=== PATIENT | male | born 1980 | race Hispanic/Latino ===

== ENCOUNTER 2018-01-22 06:20 | Inpatient (IN) | payer SELFPAY ==
[~2018-01-22] VITALS: Ht 180.3 cm; Wt 116.8 kg
[2018-01-22 07:24] LABS: APPEARANCE CLEAR ((CLEAR)); BILIRUBIN SMALL; BLOOD NEGATIVE; COLOR AMBER ((YELLOW)); GLUCOSE (STRIP) NEGATIVE; KETONES NEGATIVE; LEUKOCYTES NEGATIVE; NITRITE NEGATIVE; PROTEIN (STRIP) 30; UCUL ADDED? NO
[2018-01-22 07:25] LABS: BASOPHIL (%) 0.3 % (0-1); EOSINOPHIL (%) 0.4 % (0-5); EOSINOPHIL COUNT 0.1 K/uL (0-0.3); HEMATOCRIT 47.8 % (38.0-50.0); HEMOGLOBIN 16.2 G/DL (12.5-16.6); IMMATURE GRANULOCYTE (%) 0.8 % (0.0-0.7); LYMPHOCYTE (%) 11.5 % (15-42); LYMPHOCYTE COUNT 1.5 K/uL (1.0-2.8); MCH 29.6 PG (29.0-34.0); MCHC 33.9 G/DL (30.0-36.0); MCV 87.4 FL (86-99); MONOCYTE (%) 5.3 % (3-12); MONOCYTE COUNT 0.7 K/uL (0-0.8); NEUTROPHIL (%) 81.7 % (45-76); NEUTROPHIL COUNT 10.8 K/uL (1.8-6.4); PLATELET COUNT 372 K/uL (156-360); RBC DIS.WIDTH-CV 14.2 % (11.8-14.6); RBC DIS.WIDTH-SD 45.2 % (39-53); RED BLOOD COUNT 5.47 M/uL (4.00-5.50); WHITE BLOOD COUNT 13.2 K/uL (4.1-10.2)
[2018-01-22 07:47] LABS: ALBUMIN 4.5 G/DL (3.2-4.8); CHLORIDE 104 MEQ/L (99-109); POTASSIUM 3.9 MEQ/L (3.7-5.4); SODIUM 140 MEQ/L (136-147); TOTAL BILIRUBIN 2.9 MG/DL (0.0-1.0)
[2018-01-22 07:53] LABS: ALKALINE PHOSPHATASE 208 IU/L (3-129); ALT (GPT) 149 IU/L (3-49); AST (GOT) 169 IU/L (2-34); GFR ESTIMATE (CALCULATED) > 59 mL/min/ (58.99-99999); GLUCOSE 120 mg/dL (70-99); LIPASE 14 U/L (1.0-51.0); TOTAL PROTEIN 8.2 G/DL (6.4-8.3); UREA NITROGEN (BUN) 10 mg/dL (9-23)
[2018-01-22] MEDS ORDERED: ADVIL,NUPRIN,M200 MG PO (09:10)
[2018-01-22 16:00] VITALS: BP 122/77
[2018-01-22 20:21] VITALS: BP 122/82
[2018-01-23 00:21] VITALS: BP 124/81
[2018-01-23 04:00] VITALS: BP 125/78
[2018-01-23 08:38] VITALS: BP 137/92
[2018-01-23 11:55] LABS: HEMATOCRIT 37.2 % (38.0-50.0); MCH 28.9 PG (29.0-34.0); MCHC 32.8 G/DL (30.0-36.0); MCV 88.2 FL (86-99); PLATELET COUNT 324 K/uL (156-360); RBC DIS.WIDTH-CV 14.5 % (11.8-14.6); RBC DIS.WIDTH-SD 46.4 % (39-53)
[2018-01-23 11:56] LABS: HEMOGLOBIN 12.2 G/DL (12.5-16.6); RED BLOOD COUNT 4.22 M/uL (4.00-5.50)
[2018-01-23 12:13] LABS: ALBUMIN 3.4 G/DL (3.2-4.8); ALKALINE PHOSPHATASE 168 IU/L (3-129); ALT (GPT) 241 IU/L (3-49); AST (GOT) 177 IU/L (2-34); CHLORIDE 103 MEQ/L (99-109); GFR ESTIMATE (CALCULATED) > 59 mL/min/ (58.99-99999); GLUCOSE 123 mg/dL (70-99); POTASSIUM 3.6 MEQ/L (3.7-5.4); SODIUM 137 MEQ/L (136-147); UREA NITROGEN (BUN) 8 mg/dL (9-23)
[2018-01-23 12:16] LABS: TOTAL BILIRUBIN 5.9 MG/DL (0.0-1.0); TOTAL PROTEIN 5.7 G/DL (6.4-8.3)
[2018-01-23 12:20] VITALS: BP 135/84
[2018-01-24] VITALS (7 sets, daily range): BP systolic 105–125; BP diastolic 62–91
[2018-01-24 15:19] LABS: ALBUMIN 3.7 G/DL (3.2-4.8); CHLORIDE 104 MEQ/L (99-109); SODIUM 136 MEQ/L (136-147); TOTAL BILIRUBIN 5.5 MG/DL (0.0-1.0)
[2018-01-24 15:25] LABS: ALT (GPT) 223 IU/L (3-49); AST (GOT) 126 IU/L (2-34); CREATININE 0.9 MG/DL (0.6-1.3); GFR ESTIMATE (CALCULATED) > 59 mL/min/ (58.99-99999); GLUCOSE 106 mg/dL (70-99); TOTAL PROTEIN 6.3 G/DL (6.4-8.3); UREA NITROGEN (BUN) 8 mg/dL (9-23)
[2018-01-24 15:36] LABS: ALKALINE PHOSPHATASE 229 IU/L (3-129)
[2018-01-25 05:51] LABS: BASOPHIL (%) 0.4 % (0-1); EOSINOPHIL (%) 2.5 % (0-5); EOSINOPHIL COUNT 0.2 K/uL (0-0.3); HEMATOCRIT 32.2 % (38.0-50.0); HEMOGLOBIN 10.6 G/DL (12.5-16.6); LYMPHOCYTE (%) 13.8 % (15-42); LYMPHOCYTE COUNT 1.3 K/uL (1.0-2.8); MCH 29.5 PG (29.0-34.0); MCHC 32.9 G/DL (30.0-36.0); MCV 89.7 FL (86-99); MONOCYTE (%) 8.9 % (3-12); MONOCYTE COUNT 0.8 K/uL (0-0.8); NEUTROPHIL (%) 73.4 % (45-76); NEUTROPHIL COUNT 6.7 K/uL (1.8-6.4); PLATELET COUNT 252 K/uL (156-360); RBC DIS.WIDTH-CV 14.9 % (11.8-14.6); RED BLOOD COUNT 3.59 M/uL (4.00-5.50); WHITE BLOOD COUNT 9.1 K/uL (4.1-10.2)
[2018-01-25 07:25] VITALS: BP 108/71
[2018-01-25 08:43] LABS: ALBUMIN 3.1 G/DL (3.2-4.8); ALKALINE PHOSPHATASE 191 IU/L (3-129); ALT (GPT) 195 IU/L (3-49); AST (GOT) 104 IU/L (2-34); CHLORIDE 103 MEQ/L (99-109); CREATININE 0.8 MG/DL (0.6-1.3); GFR ESTIMATE (CALCULATED) > 59 mL/min/ (58.99-99999); GLUCOSE 89 mg/dL (70-99); POTASSIUM 3.4 MEQ/L (3.7-5.4); SODIUM 136 MEQ/L (136-147); TOTAL BILIRUBIN 5.2 MG/DL (0.0-1.0); TOTAL PROTEIN 5.4 G/DL (6.4-8.3); UREA NITROGEN (BUN) 7 mg/dL (9-23)
[2018-01-25 15:00] VITALS: BP 116/70
[2018-01-25 23:04] VITALS: BP 127/82
[2018-01-26 05:01] LABS: BASOPHIL (%) 0.5 % (0-1); BASOPHIL COUNT 0.1 K/uL (0-0.1); EOSINOPHIL (%) 2.5 % (0-5); EOSINOPHIL COUNT 0.2 K/uL (0-0.3); HEMATOCRIT 34.7 % (38.0-50.0); HEMOGLOBIN 11.5 G/DL (12.5-16.6); IMMATURE GRANULOCYTE (%) 1.6 % (0.0-0.7); LYMPHOCYTE (%) 10.3 % (15-42); MCH 29.5 PG (29.0-34.0); MCHC 33.1 G/DL (30.0-36.0); MONOCYTE (%) 7.8 % (3-12); MONOCYTE COUNT 0.8 K/uL (0-0.8); NEUTROPHIL (%) 77.3 % (45-76); NEUTROPHIL COUNT 7.4 K/uL (1.8-6.4); NRBC (%) 0.2 /100 WBC (0-0); PLATELET COUNT 292 K/uL (156-360); RBC DIS.WIDTH-CV 15.4 % (11.8-14.6); RBC DIS.WIDTH-SD 49.2 % (39-53); WHITE BLOOD COUNT 9.6 K/uL (4.1-10.2)
[2018-01-26 06:10] LABS: ALBUMIN 3.3 G/DL (3.2-4.8); ALKALINE PHOSPHATASE 233 IU/L (3-129); ALT (GPT) 185 IU/L (3-49); AST (GOT) 95 IU/L (2-34); CHLORIDE 102 MEQ/L (99-109); CREATININE 0.9 MG/DL (0.6-1.3); GFR ESTIMATE (CALCULATED) > 59 mL/min/ (58.99-99999); GLUCOSE 95 mg/dL (70-99); POTASSIUM 3.4 MEQ/L (3.7-5.4); SODIUM 136 MEQ/L (136-147); TOTAL PROTEIN 5.8 G/DL (6.4-8.3); UREA NITROGEN (BUN) 7 mg/dL (9-23)
[2018-01-26 06:12] LABS: TOTAL BILIRUBIN 7.4 MG/DL (0.0-1.0)
[2018-01-26 07:10] VITALS: BP 111/73
[2018-01-26 11:18] VITALS: BP 110/67
[2018-01-26 15:39] VITALS: BP 124/66
[2018-01-26 19:02] VITALS: BP 114/74
[2018-01-26 23:46] VITALS: BP 174/96
[2018-01-27 04:09] VITALS: BP 107/59
[2018-01-27 06:33] LABS: BASOPHIL (%) 0.3 % (0-1); EOSINOPHIL (%) 1.7 % (0-5); EOSINOPHIL COUNT 0.2 K/uL (0-0.3); HEMOGLOBIN 11.3 G/DL (12.5-16.6); IMMATURE GRANULOCYTE (%) 1.6 % (0.0-0.7); LYMPHOCYTE (%) 11.4 % (15-42); LYMPHOCYTE COUNT 1.3 K/uL (1.0-2.8); MCH 29.7 PG (29.0-34.0); MCHC 33.2 G/DL (30.0-36.0); MCV 89.2 FL (86-99); MONOCYTE (%) 7.2 % (3-12); MONOCYTE COUNT 0.8 K/uL (0-0.8); NEUTROPHIL (%) 77.8 % (45-76); NEUTROPHIL COUNT 8.9 K/uL (1.8-6.4); PLATELET COUNT 302 K/uL (156-360); RBC DIS.WIDTH-CV 15.8 % (11.8-14.6); RBC DIS.WIDTH-SD 50.7 % (39-53); RED BLOOD COUNT 3.81 M/uL (4.00-5.50); WHITE BLOOD COUNT 11.5 K/uL (4.1-10.2)
[2018-01-27 07:03] LABS: ALBUMIN 3.4 G/DL (3.2-4.8); ALKALINE PHOSPHATASE 243 IU/L (3-129); ALT (GPT) 137 IU/L (3-49); AST (GOT) 66 IU/L (2-34); CHLORIDE 105 MEQ/L (99-109); CREATININE 0.7 MG/DL (0.6-1.3); GFR ESTIMATE (CALCULATED) > 59 mL/min/ (58.99-99999); GLUCOSE 77 mg/dL (70-99); LIPASE 21 U/L (1.0-51.0); POTASSIUM 3.7 MEQ/L (3.7-5.4); SODIUM 138 MEQ/L (136-147); TOTAL BILIRUBIN 3.9 MG/DL (0.0-1.0); TOTAL PROTEIN 5.5 G/DL (6.4-8.3); UREA NITROGEN (BUN) 8 mg/dL (9-23)
[2018-01-27 08:20] VITALS: BP 148/86
[2018-01-27] MEDS ORDERED: HYDROCODON-ACE1 EA11 PO (11:08)
[2018-01-27] MEDS ORDERED: AUGMENTIN875 MG PO (11:08)
[2018-01-27 12:21] VITALS: BP 127/79
== END 2018-01-27 13:17 | disposition home or self-care (01) | DRG 419 ==
LOC: EME 06:20 → ENRESERV 10:36 → EME 11:45 → SDC 11:45 → 2SOUTH 11:46 → 2EAST 11:46 → ENRESERV 11:52 → 2EAST 15:50
PROVIDERS: Emergency Medicine; Physician Assistant; Surgery
DX: K80.64 Calculus of gallbladder and bile duct with chronic cholecystitis without obstruction (principal); K66.0 Peritoneal adhesions (postprocedural) (postinfection); I10 Essential (primary) hypertension; E66.9 Obesity, unspecified; Z68.36 Body mass index [BMI] 36.0-36.9, adult
CPT/HCPCS: 74176; 74181; 74328; 76705; 80053; 81003; 83690; 85025; 85027; 87081; 88304; 99281; 99284; C1757; C1769; G0378; J0131; J0330; J0690; J1100; J1170; J1644; J2405; J2543; J3010; J7030; J7040; J7050; J7120; S0020